=== PATIENT | female | born 1980 | race Caucasian/White ===

== ENCOUNTER 2016-10-08 19:43 | Emergency (ER) | payer BC ==
[~2016-10-08] VITALS: Ht 154.9 cm; Wt 81.0 kg
[2016-10-08 19:45] VITALS: Ht 154.9 cm; Wt 81.0 kg
[2016-10-08 20:25] LABS: ADD SCAN DIFF NO
[2016-10-08 20:28] LABS: BASOPHILS % 0.3 % (0.0-2.0); EOSINOPHILS # 0.2 10^3/ul (0.0-0.5); EOSINOPHILS % 2.2 % (0.0-7.0); HEMATOCRIT 36.4 % (37.0-47.0); HEMOGLOBIN 13.2 g/dl (12.0-16.0); LYMPHOCYTES # 2.4 10^3/ul (0.8-2.9); LYMPHOCYTES % 25.5 % (15.0-51.0); MEAN CORPUSCULAR HEMOGLOBIN 33.2 pg (29.0-33.0); MEAN CORPUSCULAR HGB CONC 36.3 g/dl (32.0-37.0); MEAN CORPUSCULAR VOLUME 91.7 fl (82.0-101.0); MEAN PLATELET VOLUME 11.2 fl (7.4-10.4); MONOCYTE # 0.5 10^3/ul (0.3-0.9); MONOCYTES % 4.9 % (0.0-11.0); NEUTROPHIL # 6.3 10^3/ul (1.6-7.5); NEUTROPHILS % 66.5 % (39.0-77.0); PLATELET COUNT 207 10^3/UL (140-415); RED BLOOD COUNT 3.97 10^6/ul (4.20-5.40); RED CELL DISTRIBUTION WIDTH 12.7 % (11.5-14.5); WHITE BLOOD COUNT 9.4 10^3/ul (4.8-10.8)
[2016-10-08 20:47] LABS: ALBUMIN 4.8 g/dl (3.3-4.9); ALBUMIN/GLOBULIN RATIO 1.54; BILIRUBIN,INDIRECT 0.5 mg/dl (0-1.1); BILIRUBIN,TOTAL 0.5 mg/dl (0.2-1.3); CALCIUM 9.6 mg/dl (8.4-10.2); CREATININE 0.58 mg/dl (0.44-1.00); POTASSIUM 4.1 mmol/L (3.5-5.1); TOTAL PROTEIN 7.9 g/dl (6.1-8.1)
[2016-10-08 20:50] LABS: ADD UMIC YES; UR ASCORBIC ACID NEGATIVE (NEGATIVE); UR BACTERIA FEW /HPF (NONE SEEN); UR BILIRUBIN (Dip) NEGATIVE (NEGATIVE); UR BLOOD (Dip) 2+ mg/dL (NEGATIVE); UR CLARITY CLEAR (CLEAR); UR COLOR YELLOW (YELLOW); UR GLUCOSE (Dip) NEGATIVE (NEGATIVE); UR KETONES (Dip) NEGATIVE (NEGATIVE); UR LEUKOCYTE ESTERASE (Dip) 1+ Leu/ul (NEGATIVE); UR NITRITE (Dip) NEGATIVE (NEGATIVE); UR RBC 2 /HPF (0-5); UR SPECIFIC GRAVITY (Dip) 1.006 (1.003-1.030); UR TOTAL PROTEIN (Dip) NEGATIVE (NEGATIVE); UR UROBILINOGEN (Dip) NEGATIVE (NEGATIVE)
--- NOTE | 2016-10-08 21:15 | RADRPT ---
PROCEDURE: OB Ultrasound. CLINICAL INDICATION: Positive test. Vaginal bleeding. TECHNIQUE: Ultrasound of the pelvis was performed with transabdominal sonography in the axial and sagittal planes. COMPARISON: No prior study is available for comparison. FINDINGS: There is a single intrauterine gestational sac. pole and yolk sac are present. There is heart motion. heart rate is 153 beats per minute. Winters-rump length is 4.59 cm. Mean sac diameter is 4.61 cm. Menstrual age by ultrasound dates is 11 weeks 0 days. This indicates an expected date of delivery of 04/29/2017. The ovaries are not visualized. There is no other pelvic mass or free fluid. IMPRESSION: 1. Single live intrauterine gestation of 11 weeks 0 days menstrual age by ultrasound dates. 2. Expected date of delivery is 04/29/2017. RPTAT: QQ .Dennis Briceno MD, Date Time Electronically viewed and signed by .Dennis Briceno MD, on 10/08/2016 21:15 .R/
--- NOTE | 2016-10-13 16:49 | ERD ---
DATE OF SERVICE: CHIEF COMPLAINT: Vaginal bleeding. HISTORY OF PRESENT ILLNESS: This is a 36-year-old 5, para 4 female that presents to the [facility] department complaining of vaginal spotting that occurred an hour prior to arrival. The patie nt indicates she had utilized the bathroom and upon widening noticed pinkish tinged color on the kvng let paper. The patient states she has not experienced any frequency, urgency, or dysuria. She has had no fevers, no shaking, no chills. She has been receiving care and states there have be en no complications with this . She is currently 12 weeks , dated by last menstrua l period on 07/09/2016. The patient has not experienced any fever, shaking, or chills. She denies any abdominal discomfort or cramping. She is taking vitamins. She is not currently on any antibiotics. She has 4 children at home who are healthy, and there were no complications with her previous pregnancies. She denies any past surgical history and states all pregnancies were normal s pontaneous vaginal deliveries. PAST MEDICAL HISTORY: None. PAST SURGICAL HISTORY: None. ALLERGIES: NO KNOWN DRUG ALLERGIES. SOCIAL HISTORY: Denies tobacco, ETOH, or illicit drug use. REVIEW OF SYSTEMS: All 12 systems were reviewed and negative unless otherwise stated in history of present illness. PHYSICAL EXAMINATION VITAL SIGNS: Blood pressure 136/85, respiratory rate 20, pulse rate 85, temperature 98.6, pulse ox 99% on room air. CONSTITUTIONAL: Well-developed, well-nourished female, not in acute respiratory distress, sitting u pright in a stretcher. HEENT: Normocephalic, atraumatic. Moist mucous membranes. No tonsillar exudates or erythema of th e oropharynx. NECK: Supple. No masses, no tenderness. Trachea midline. No lymphadenopathy. RESPIRATORY: Lungs are clear to auscultation bilaterally with no wheezing, rhonchi, or rales. CARDIOVASCULAR: Regular rate, regular rhythm. S1, S2 is normal. No murmurs or rubs are appreciate d. Distal pulses are palpable, 2+ bilaterally. Cap refill less than 2 seconds. GASTROINTESTINAL: Abdomen soft, gravid uterus. No rebound, no guarding, no pulsatile abdominal mas ses or bruits. GENITOURINARY: Pelvic exam was performed by myself, and the patient denied a female nurse chief vendor quality present. No endocervical discharge, no gross blood present within the vaginal vault. No cervical motion tenderness. No adnexal tenderness or adnexal masses. The cervix was closed, nonfriable. MUSCULOSKELETAL: The patient had full range of motion of both the upper and lower extremities bilat erally. Muscle tone was normal. SKIN: Warm, dry with no cyanosis, diaphoresis, edema. No petechiae, no purpura. NEUROLOGIC: The patient is alert, awake, oriented x3. No focal neurological deficits. Gait observ ed and normal. Deep tendon reflexes are equal and symmetrical. DIAGNOSTIC TESTS AND INTERPRETATIONS: 1. Pulse ox interpreted by myself as normal. There is no evidence of hypoxemic. 2. Transvaginal ultrasound ordered and reviewed by myself, performed by the library acquisitions technician, and re viewed by both myself and the radiologist indicated the patient had a single live intrauterine gesta tion of 11 weeks 0 days. heart tones were present at 153 beats per minute. No evidence of ec topic . The expected date of delivery is 04/29/2017. ANCILLARY LABORATORY WORK: There is no leukocytosis, white blood cell count is 9.4. The patient is not anemic. Hemoglobin is 13.2. There are no electrolyte abnormalities. No acute kidney injury. No liver or gallbladder damage. Beta hCG is 81,793. There is no evidence of a urinary tract infec tion. There was no pyuria. There was mild leukocyte esterase but no nitrites. MEDICAL DECISION MAKING AND COURSE IN THE EMERGENCY DEPARTMENT: This patient was seen and evaluated by myself. The patient presents to the emergency department with first trimester vaginal bleeding. The patient was hemodynamically stable, not in acute respiratory distress, and IV access was estab lished by nursing staff. A transvaginal ultrasound was ordered and reviewed by myself and indicated that the patient had no evidence of ectopic or demise. I relayed the findings to t he patient that the patient did have a single live intrauterine , but given her symptoms wi thout any evidence of urinary tract infection, there was concern for a threatened . She was instructed to follow up with MEAT SUPERVISOR in the next 48 hours for repeat beta hCG level and examination. She was instructed to undergo no heavy lifting and modify duty over the next 48 hours. She reques artis a work note during that time. She was instructed that she can return to the emergency departmen t at any time if there is any worsening of symptoms. FINAL DISPOSITION: The patient was discharged home in fair condition with strict instructions to re turn to the emergency department immediately if her symptoms were to worsen. OVERALL CLINICAL IMPRESSION: Threatened . Dictated By: RONN GABRIEL MD CP/NTS Conf#: [id number] DID#: [id number]
== END 2016-10-09 00:05 | disposition home or self-care (01) ==
LOC: FTE 19:43 → E/R 10-09 00:05
DX: O20.0 Threatened abortion (principal); Z3A.11 11 weeks gestation of pregnancy
CPT/HCPCS: 76801; 80053; 81001; 84702; 85025; 86900; 86901; 87086

== ENCOUNTER 2017-04-21 09:33 | Outpatient (CLI) | END 2017-04-21 14:00 | disposition home or self-care (01) ==

== ENCOUNTER 2017-04-23 09:05 | Inpatient (IN) | END 2017-04-26 15:00 | disposition home or self-care (01) | DRG 775 ==